=== PATIENT | female | born 1995 | race Caucasian/White ===

== ENCOUNTER 2016-03-30 18:01 | Emergency (ER) | payer OTHER ==
[2016-03-30 18:18] VITALS: BP 130/84; PULSE 68; RESP 18; TEMP 98; O2SAT 97
[2016-03-30] MEDS ORDERED: TDAP ADULT 0.5 ML INJ (BOOSTRIX) IM ONE (18:45)
--- NOTE | 2016-03-30 18:45 | UCPHY ---
H & P Time Seen by Provider: 03/30/16 18:43 Patient Type: Established HPI/ROS: This patient sustained a left 2nd finger laceration at work in a [employer] shop shortly prior to arrival with mild pain at the site of the laceration. She was putting away a straight razor when she inadvertently sustained a laceration to the dorsum of the left 2nd finger. She reports the pain is mild. There is mild bleeding that stopped with direct pressure. Injury occurred shortly prior to arrival. ROS: No numbness or tingling. No difficulty moving the affected finger. 5 point ROS is otherwise negative. Past Medical/Surgical History: she thinks that her tetanus immunization was when she was a young child. Smoking Status: Never smoked Physical Exam: Physical Exam Vital signs are normal. General: No acute distress Eyes: Pupils equal and react to light. Extraocular motions are intact. Cardiac: Brisk capillary refill is intact throughout. Pulses are 2+ and symmetric in the affected extremity. Extremities: Atraumatic except for left 2nd finger that exam is notable for a 2 cm full-thickness laceration to the dorsum of the finger at the PIP joint. While the wound go see the skin there are no deeper structures injured. She retains full range of motion of the finger. No tendon injuries appreciated. No foreign bodies. Skin: No rash or pallor. Neuro: Alert and oriented x3 with no sensorimotor deficits. Constitutional: Initial Vital Signs Temperature (C) 36.6 C 03/30/16 18:14 Heart Rate 68 03/30/16 18:14 Respiratory Rate 18 03/30/16 18:14 Blood Pressure 130/84 H 03/30/16 18:14 O2 Sat (%) 97 03/30/16 18:14 O2 Delivery Mode Room Air Allergies/Adverse Reactions: Penicillins Allergy (Verified 03/30/16 18:14) Home Medications: Medication Instructions Recorded NK [No Known Home Meds] 03/30/16 MDM/Departure - MDM Procedures: 1. Digital block: After verbal consent, using a 50 50 mix of 0.5% Marcaine 2% plain lidocaine, 27 gauge needle, chlorhexidine scrub under sterile conditions- 3 injections were administered to the base of the affected finger, 8 mL with good effect. Patient tolerated this well. There were no complications. The wound is 2 cm described physical exam. The wound was copiously irrigated with saline. The wound was explored for foreign bodies and none were found. The wound was prepped and draped in the normal sterile fashion. The edges were reapproximated using 4 0 Ethilon-5 running sutures with good hemostasis and cosmesis. The patient tolerated the procedure well. There were no complications Medications Given: Discontinued Medications Diphtheria/Tetanus/Acell Pertussis (Boostrix) 0.5 ml IM .ONCE ONE Stop: 03/30/16 18:46 Last Admin: 03/30/16 18:57 Dose: 0.5 ml ED Course/Re-evaluation: Patient is placed in tube gauze by our tech and counseled regarding wound care - Depart Disposition: Home, Routine, Self-Care Clinical Impression: Finger laceration Qualifiers: Encounter type: initial encounter Qualified Code(s): S61.219A - Laceration without foreign body of unspecified finger without damage to nail, initial encounter Condition: Good Instructions: Finger Laceration (ED) Additional Instructions: Diagnosis: Finger laceration Plan: Keep the wound clean and dry for the next 2 days. Then clean daily with warm soapy water Return for suture removal in 10-12 days. Ibuprofen and/or Tylenol as needed for pain. Return sooner for redness, discharge or other concerns for infection. Stand Alone Forms: Work Excuse Referrals: Jossie Zafar, PAC [Primary Care Provider] - As per Instructions - PQRS PQRS Measurement: NA
== END 2016-03-30 19:00 | disposition home or self-care (01) ==
LOC: CED 18:01
PROC: 0HQGXZZ Repair Left Hand Skin, External Approach (ICD-10-PCS; principal; 2016-03-30)
DX: S61.211A Laceration without foreign body of left index finger without damage to nail, initial encounter (principal); W26.8XXA Contact with other sharp object(s), not elsewhere classified, initial encounter
CPT/HCPCS: 12001-PO; 99214-PO; G0463-PO

== ENCOUNTER 2016-04-15 20:15 | Emergency (ER) | payer OTHER ==
--- NOTE | 2016-04-15 20:47 | UCPHY ---
H & P Time Seen by Provider: 04/15/16 20:40 Patient Type: Established HPI/ROS: CHIEF COMPLAINT: Suture removal/possible infection HISTORY OF PRESENT ILLNESS: The patient is a 20-year-old female who presents for clinical evaluation of her sutures. She initially lacerated her left first finger 03/30/2016 and was sutured here at Ur[facility] Care. She is now concerned for infection as the wound has become erythematous, mildly swollen, and she has mild numbness at the tip - all over the last 3 days. She denies fever, weakness , vomiting, red streaking, or other complaints. 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 Has been wearing gloves. REVIEW OF SYSTEMS: Constitutional - no fevers or chills Musculoskeletal - no joint or muscle pain. Integument - no rashes no lymphangitis Neurological - no tingling, or paresthesias. Past Medical/Surgical History: Denies. Social History: Nonsmoker. Smoking Status: Never smoked Physical Exam: General Appearance: Alert, no distress. Afebrile. Normal phonation. No respiratory distress. Eyes: Pupils equal and round no pallor or injection. No icterus Neurological: Two-point discrimination is intact Skin: No lymphangitis Musculoskeletal: With respect to the left index, PIP joint there is a heaped up thickened tissue without any moisture present to the wound. Is tender to the touch. With suture removal this was much more tender than typically seen. However there is no free pus emanating. There is only minimal signs of some erythema.. Extremities: No edema. No weakness of left second finger. Psychiatric: Patient is oriented X 3, there is no agitation Allergies/Adverse Reactions: Penicillins Allergy (Verified 03/30/16 18:14) Home Medications: Medication Instructions Recorded Cephalexin [Keflex (*)] 500 mg PO TID #21 cap 04/15/16 Medical Decision Making ED Course/Re-evaluation: She is showing some signs of wound infection and have not in due to the subsequent swelling over last 2 days, exquisite tenderness more so than 1 would ever be seen, and thickening of the tissue however there is no free pus. Thus she will be on a course Keflex for 3 days as her penicillin allergy at 1 years of age is unknown be anaphylaxis. She will come in for wound check and a week's time to be certain she is able to go without a splint at that Differential Diagnosis: The differential diagnosis includes but is not limited to: Fracture, Sprain, Strain, Nerve injury, cellulitis. Departure - Departure Disposition: Home, Routine, Self-Care Clinical Impression: Visit for suture removal Cellulitis Qualifiers: Site of cellulitis: extremity Site of cellulitis of extremity: finger Laterality: left Qualified Code(s): L03.012 - Cellulitis of left finger Condition: Good Instructions: Cellulitis (ED) Additional Instructions: Take the antibiotics as prescribed. Return immediately for fever, red streaking, weakness, or worsening of condition. Stand Alone Forms: Work Limited Duty Prescriptions: Cephalexin [Keflex (*)] 500 mg PO TID #21 cap - PQRS PQRS Measurement: Not applicable. Report Scribed for: Marvin Alexander Report Scribed by: Alonzo Khan Date of Report: 04/15/16 Time of Report: 20:48 Physician Review and Approval Statement: 04/15/16 20:48 Portions of this note were transcribed by a medical coding auditor. I personally performed a history, physical exam, medical decision making, and confirmed accuracy of information the transcribed note.
[2016-04-15] MEDS ORDERED: CEPHALEXIN 500MG PREPACK#4 BTL TAKEHOME ONE (20:53)
== END 2016-04-15 21:35 | disposition home or self-care (01) ==
LOC: CED 20:15
DX: Z48.02 Encounter for removal of sutures (principal); L03.012 Cellulitis of left finger; S61.211D Laceration without foreign body of left index finger without damage to nail, subsequent encounter; Y99.0 Civilian activity done for income or pay
CPT/HCPCS: 99214-PO; G0463-PO